=== PATIENT | female | born 1960 | race Caucasian/White ===

== ENCOUNTER 2018-09-18 09:12 | Day surgery (SDC) | payer OTHER ==
--- NOTE | 2018-09-10 13:01 | PREOPHP ---
DATE OF ADMISSION: 09/11/2018 HISTORY OF PRESENT ILLNESS: This 57-year-old patient is admitted for elective cataract surgery of th e right eye. The patient has had progressive deterioration of vision in both eyes and 2 years ago un derwent cataract surgery in the left eye with excellent visual improvement. There is no other prior history of eye disease or injury. PAST MEDICAL HISTORY: The patient's systemic history is positive for a 10-year history of insulin-de pendent diabetes mellitus. Systemic hypertension has been present for the past 20 years. CURRENT MEDICATIONS: Include: 1. Humalog. 2. Cozaar. 3. Lantus. 4. Losartan. 5. Aspirin. The aspirin was stopped 1 week prior to surgery. ALLERGIES: THE PATIENT IS ALLERGIC TO TETRACYCLINE. PHYSICAL EXAMINATION: The visual acuity with correction is 20/40 in the right eye and 20/25 in the l eft eye. Slit lamp examination reveals moderate nuclear sclerosis and dense posterior subcapsular ca taract in the right eye. The left eye has a posterior chamber intraocular lens in appropriate positi on. Applanation tonometry is 16 mmHg. Examination of the retina is within normal limits without nacho dence of diabetic retinopathy. DIAGNOSIS: Posterior subcapsular cataract, right eye. PLAN: Cataract extraction with lens implant, right eye. The risks and alternatives to the surgery h ave been discussed with the patient as well as the hope for improvement of visual acuity leading to g reater ability to perform activities of daily living. The patient understands this and agrees to pro ceed with surgery. Dictated By: SACHA BARTH/BOBY Conf#: [id number] DID#: [id number]
--- NOTE | 2018-09-11 07:15 | PREAC ---
Date/Time of Note Date/Time of Note DATE: 09/11/18 TIME: 07:11 Anesthesia Eval and Record Evaluation Time Pre-Procedure Interview DATE: 09/11/18 TIME: 07:11 Age 57 Sex female NPO: 8 hrs Preoperative diagnosis Right Cataract Planned procedure R$ight cataract Extraction And IOL Past Medical History Past Medical History: Includes Cardio: HTN, Dyslipidemia Endo: Diabetes, Hypothyroid Pulm: Other Neuro: Other Musculoskeletal: Other Renal: Other Hepatic: Other GI: Other Heme: Other Psych: Other Infection(s): Other Recreational drugs: Other Surgery & Anesthesia Issues Aspiration risk Meds Anticoagulation: No Beta Snehal within 24 hr: No Reason Beta Snehal not given: Pt. not on B-Snehal Reported Medications Aspirin (Low Dose Aspirin) 81 Mg Tablet.dr, 81 MG PO DAILY, #30 TAB 08/16/16 Citalopram Hydrobromide* (Citalopram Hydrobromide*) 40 Mg Tablet, 40 MG PO DAILY, #30 TAB 08/16/16 Insulin Glargine* (Lantus*) 100 Unit/Ml Soln, 24 UNIT SC QHS, #1 VIAL 08/16/16 Insulin Lispro (Humalog) 100 Unit/1 Ml Cartridge, 10 UNIT SQ AC MEALS 08/16/16 Losartan Potassium* (Cozaar*) 100 Mg Tablet, 100 MG PO DAILY, #30 TAB 08/16/16 Aspirin (Aspirin) 81 Mg Chew, 81 MG PO DAILY 03/08/13 Current Medications Diclofenac Sodium (Voltaren 0.1%) 1 drop Q5 MIN X 3 OPER ; Start 09/11/18 at 06:00 Tropicamide (Mydriacyl 1%) 1 drop Q5 MIN X3 OPER ; Start 09/11/18 at 06:00 Moxifloxacin HCl (Vigamox) 1 drop Q5 MIN X 3 OPER ; Start 09/11/18 at 06:00 Cyclopentolate/ Phenylephrine (Cyclomydril Oph 2 ml) 1 drop Q5 MIN X 3 OPER ; Start 09/11/18 at 06:00 Sodium Chloride 1,000 ml @ 25 mls/hr Q24H IV ; Start 09/11/18 at 06:00 Meds reviewed: Yes Allergies Coded Allergies: tetracycline (Verified Allergy, Unknown, 08/16/16) Allergies Reviewed: Yes Labs/Studies Labs Reviewed: Reviewed by anesthesiologist test: N/A Studies: ECG, CXR Pre-procedure Exam Airway: Adequate mouth opening Mallampati: Mallampati II Teeth: Normal Lung: Normal Heart: Normal Anticipated Difficutly with IV: Anticipate Difficult IV Access ASA Physical Status ASA physical status: 2 Emergency: None Planned Anesthetic General/MAC: MAC Neuraxial: Other Nerve block: Other Planned Pain Management Parenteral pain med, Local by surgeon Pre-operative Attestations Prior to commencing anesthesia and surgery, the patient was re-evaluated, there was verification of: *The patient's identity *The results of appropriate recent lab work and preoperative vital signs *The above evaluation not changing prior to induction *Anesthetic plan, risk benefits, alternative and complications discussed with patient/family; questions answered; patient/family understands, accepts and wishes to proceed. BALWINDER TRACEY MD Sep 11, 2018 07:15
[~2018-09-18] VITALS: Ht 162.6 cm; Wt 123.3 kg
[2018-09-18] VITALS (11 sets, daily range): BP systolic 146–192; BP diastolic 55–81; PULSE 84–105; RESP 18–22; Ht 162.6 cm; Wt 123.3 kg
[~2018-09-18 09:12] MED LIST: ASPI-831 PO; ASPI81TA52 PO; CITA40TA6 PO; CYCLOPENTOLATE/PHENYLEPH 2 ML OPH OPER SCH; DICLOFENAC 0.1% 2.5 ML OPH OPER SCH; INSU100C SQ; LANT3I SC; LOSA100T3 PO; MOXIFLOXACIN 0.5% 3 ML OPH OPER SCH; SOD CHLORIDE 0.9% 1,000 ML IV SCH; TROPICAMIDE 1% 15 ML OPH OPER SCH
--- NOTE | 2018-09-18 09:14 | PREAC ---
Date/Time of Note Date/Time of Note DATE: 09/18/18 TIME: 09:10 Anesthesia Eval and Record Evaluation Time Pre-Procedure Interview DATE: 09/18/18 TIME: 09:10 Age 57 Sex female NPO: 8 hrs Preoperative diagnosis Right Eye Cataract Planned procedure Right Eye Cataract Extraction And IOL Past Medical History Past Medical History: Includes Cardio: HTN, Dyslipidemia Endo: Diabetes Pulm: Other Neuro: Other Musculoskeletal: Other Renal: Other Hepatic: Other GI: Obesity Heme: Other Psych: Anxiety Infection(s): Other Recreational drugs: Other : Other Surgery & Anesthesia Issues Aspiration risk Meds Anticoagulation: No Beta Snehal within 24 hr: No Reason Beta Snehal not given: Pt. not on B-Snehal Reported Medications Aspirin (Low Dose Aspirin) 81 Mg Tablet.dr, 81 MG PO DAILY, #30 TAB 08/16/16 Citalopram Hydrobromide* (Citalopram Hydrobromide*) 40 Mg Tablet, 40 MG PO D AILY, #30 TAB 08/16/16 Insulin Glargine* (Lantus*) 100 Unit/Ml Soln, 24 UNIT SC QHS, #1 VIAL 08/16/16 Insulin Lispro (Humalog) 100 Unit/1 Ml Cartridge, 10 UNIT SQ AC MEALS 08/16/16 Losartan Potassium* (Cozaar*) 100 Mg Tablet, 100 MG PO DAILY, #30 TAB 08/16/16 Aspirin (Aspirin) 81 Mg Chew, 81 MG PO DAILY 03/08/13 Current Medications Diclofenac Sodium (Voltaren 0.1%) 1 drop Q5 MIN X 3 OPER ; Start 09/18/18 at 08:00 Tropicamide (Mydriacyl 1%) 1 drop Q5 MIN X3 OPER ; Start 09/18/18 at 08:00 Moxifloxacin HCl (Vigamox) 1 drop Q5 MIN X 3 OPER ; Start 09/18/18 at 08:00 Cyclopentolate/ Phenylephrine (Cyclomydril Oph 2 ml) 1 drop Q5 MIN X 3 OPER ; Start 09/18/18 at 08:00 Sodium Chloride 1,000 ml @ 25 mls/hr Q24H IV ; Start 09/18/18 at 08:00 Meds reviewed: Yes Allergies Coded Allergies: tetracycline (Verified Allergy, Unknown, 08/16/16) Allergies Reviewed: Yes Labs/Studies Labs Reviewed: Reviewed by anesthesiologist test: N/A Studies: ECG, CXR Pre-procedure Exam Airway: Adequate mouth opening Mallampati: Mallampati II Teeth: Normal Lung: Normal Heart: Normal Anticipated Difficutly with IV: Anticipate Difficult IV Access ASA Physical Status ASA physical status: 2 Emergency: None Planned Anesthetic General/MAC: MAC Neuraxial: Other Nerve block: Other Planned Pain Management Parenteral pain med, Local by surgeon Pre-operative Attestations Prior to commencing anesthesia and surgery, the patient was re-evaluated, there was verification of: *The patient's identity *The results of appropriate recent lab work and preoperative vital signs *The above evaluation not changing prior to induction *Anesthetic plan, risk benefits, alternative and complications discussed with patient/family; questions answered; patient/family understands, accepts and wishes to proceed. BALWINDER TRACEY MD Sep 18, 2018 09:14
[2018-09-18] MEDS ORDERED: ASPI81TA52 PO (09:43)
[2018-09-18] MEDS ORDERED: LOSA50TA14 PO (09:43)
[2018-09-18] MEDS ORDERED: INSU200I SQ (09:44)
[2018-09-18] MEDS ORDERED: INSU100I33 SC (09:44)
[2018-09-18] MEDS ORDERED: TETRACAINE 0.5% 4 ML OPH ONE (12:00)
[2018-09-18] MEDS ORDERED: CEFAZOLIN 1 GM INJ ONE (12:00)
[2018-09-18] MEDS ORDERED: LIDOCAINE 4% (MPF) 5 ML INJ ONE (12:00)
[2018-09-18] MEDS ORDERED: NA HYALURONATE/CHONDROITIN 0.5 ML SYG ONE (12:00)
[2018-09-18] MEDS ORDERED: DEXAMETHASONE 4 MG/ML 1 ML INJ ONE (12:00)
[2018-09-18] MEDS ORDERED: LIDOCAINE 2% (SDV) 5 ML INJ ONE (12:17)
[2018-09-18] MEDS ORDERED: PROPOFOL 20 ML ONE (12:17)
[2018-09-18] MEDS ORDERED: CARBACHOL 0.01% 1.5 ML OPH INJ RIGHT EYE ONE (12:30)
[2018-09-18] MEDS ORDERED: FENTAnyl 50 MCG/ML VIAL ONE (13:01)
--- NOTE | 2018-09-18 13:01 | SIPON ---
Date/Time of Note Date/Time of Note DATE: 09/18/18 TIME: 12:58 Operative Report Preoperative Diagnosis posterior subcapsular cataract od Postoperative Diagnosis same Operation/Procedure Performed cataract extraction with lens implant od Surgeon sacha st imaging assistant none Anesthesia: MAC Estimated blood loss: none Transfusion Required none Specimen none Grafts/Implants posterior chamber lens implant Complications none SACHA ST MD Sep 18, 2018 13:01
[2018-09-18] MEDS ORDERED: ONDANSETRON 4 MG INJ ONE (13:02)
--- NOTE | 2018-09-18 13:08 | PAC ---
Date/Time of Note Date/Time of Note DATE: 09/18/18 TIME: 13:07 Post-Anesthesia Notes Post-Anesthesia Note Last documented vital signs Vital Signs Date Temp Pulse Resp B/P (MAP) Pulse Ox O2 O2 Flow FiO2 Time Delivery Rate 09/18/18 98.4 105 18 146/66 97 Room Air 10:31 (92) Activity: WNL Respiratory function: WNL Cardiovascular function: WNL Mental status: Baseline Pain reasonably controlled: Yes Hydration appropriate: Yes Nausea/Vomiting absent: No BALWINDER TRACEY MD Sep 18, 2018 13:08
[2018-09-18] MEDS ORDERED: hydrALAzine 20 MG INJ ONE (13:10)
[2018-09-18] MEDS: HYDROmorphONE 1 MG/5 ML IV SYRINGE IV PRN ×2 (13:22→13:27)
[2018-09-18] MEDS ORDERED: ONDANSETRON 4 MG INJ IV PRN (13:30)
[2018-09-18] MEDS ORDERED: FENTAnyl 50 MCG/ML VIAL IV PRN ×2 (13:30)
[2018-09-18] MEDS ORDERED: LABETALOL HCL 20MG INJ IV PRN (13:30)
[2018-09-18] MEDS ORDERED: DIPHENHYDRAMINE 50 MG INJ IV PRN (13:30)
[2018-09-18] MEDS ORDERED: OXYCODONE/ACETAMINOPHEN (5/325) TAB PO PRN ×2 (13:30)
[2018-09-18] MEDS ORDERED: hydrALAzine 20 MG INJ IV PRN (13:30)
[2018-09-18] MEDS ORDERED: HYDROmorphONE 1 MG/5 ML IV SYRINGE IV PRN ×2 (13:30)
--- NOTE | 2018-09-18 15:48 | OPR ---
DATE OF OPERATION: 09/18/2018 PREOPERATIVE DIAGNOSIS: Posterior subcapsular cataract, right eye. POSTOPERATIVE DIAGNOSIS: Posterior subcapsular cataract, right eye. OPERATION PERFORMED: Cataract extraction with lens implant, right eye. SURGEON: Sacha Richey MD ANESTHESIOLOGIST: Nilesh Alicea MD ANESTHESIA: Local standby. PROCEDURE: The patient was brought to the operating room and placed on the table with an IV in place and the patient attached to an teletypesetter monitor. Oxygen was given via face mask. After some intravenous sedation was administered, local anesthesia was given using Xylocaine 2% with epinephrine, mixed with Marcaine 0.5%. This was given in a lid block and retrobulbar injection. The p atient was then prepped and draped in the usual sterile manner. A wire lid speculum was inserted between the lids of the right eye. A Superblade was used to enter th e anterior chamber at the corneoscleral limbus at the 10:30 o'clock position. A separate incision was made using a 3.0-mm keratome which entered the corneoscleral junction at the 12 o'clock position. Th rough this 3-mm opening, an irrigating cystotome was introduced into the anterior chamber. The chambe r was filled with Viscoat and an anterior capsulotomy was performed. Balanced salt solution was then used for hydrodissection of the lens. A phacoemulsification handpiece was then brought into the fiel d and introduced into the anterior chamber. The lens nucleus was emulsified using a deep groove and c racking the nucleus into quadrants. Following this, each quadrant was aspirated and emulsified at the pupillary margin. It was noted following removal lens nucleus that there was a break in the posterior capsule and some formed vitreous was present in the anterior chamber. A limited anterior vitrectomy was performed wit h mechanical vitrectomy instrumentation and then when it was noted that no vitreous was present at th e wound, the procedure was continued by removal of lens cortical material. After this was completed, the irrigation/aspiration handpiece was brought to the field, introduced in to the posterior chamber, and the lens cortical material was removed. When this was completed, additi onal Viscoat was injected into the anterior and posterior chambers. The 3-mm opening had its internal lips enlarged, and then the posterior chamber intraocular lens taylor uring 18.0 diopters (Bausch [employer] Lomb Penumbra [id number]) was then injected into the posterior chamber using the lens injector system. After the leading haptic was introduced into the capsular bag and th e lens optic was present in the center of the eye, the injector was removed and the trailing haptic w as grasped with non-toothed forceps and introduced into the capsular fold superiorly. A Sinskey hook was then used to rotate the intraocular lens so that the lips were oriented in the horizontal meridia n. One 10-0 nylon suture was placed across the wound. Prior to tying, the irrigation/aspiration handpiece was reintroduced into the anterior chamber to rem ove the Viscoat. Miochol was instilled to constrict the pupil, and then the 10-0 nylon suture was tie d. The ends were cut short and then the knot was buried. Then, 0.5 mL of dexamethasone and 0.5 mL of Ancef were injected into the sub-Tenon space in the infer ior fornix. Ciloxan drops were then placed on the surface of the eye. The speculum was removed and a patch was applied. The patient then left the operating room in satisfactory condition. Dictated By: SACHA BARTH/BOBY Conf#: [id number] DID#: [id number]
== END 2018-09-18 14:33 | disposition home or self-care (01) ==
LOC: SDS 09:12
PROVIDERS: ATTEND Ophthalmology
DX: H25.041 Posterior subcapsular polar age-related cataract, right eye (principal); I10 Essential (primary) hypertension; E78.5 Hyperlipidemia, unspecified; E11.9 Type 2 diabetes mellitus without complications; E03.9 Hypothyroidism, unspecified
CPT/HCPCS: 66984; 82962; J0360; J0690; J1100; J1170; J1200; J2405; J3010; Z7610; V2632

== ENCOUNTER 2019-01-18 21:42 | Emergency (ER) | payer OTHER ==
[~2019-01-18] VITALS: Ht 162.6 cm; Wt 125.0 kg
[~2019-01-18 21:42] MED LIST changes: -ASPI-831 PO; -CITA40TA6 PO; -CYCLOPENTOLATE/PHENYLEPH 2 ML OPH OPER SCH; -DICLOFENAC 0.1% 2.5 ML OPH OPER SCH; -INSU100C SQ; +INSU100I33 SC; +INSU200I SQ; -LANT3I SC; -LOSA100T3 PO; +LOSA50TA14 PO; -MOXIFLOXACIN 0.5% 3 ML OPH OPER SCH; -SOD CHLORIDE 0.9% 1,000 ML IV SCH; -TROPICAMIDE 1% 15 ML OPH OPER SCH
[2019-01-18 22:19] VITALS: Ht 162.6 cm; Wt 125.0 kg
--- NOTE | 2019-01-18 23:06 | ERD ---
ER Documentation Chief Complaint Chief Complaint back lipoma pain HPI The patient is a 58-year-old female, presenting to the ER because of pain on the chronic left back lipoma pain for 4 days. He saw her physician 2 days ago, treated her with Keflex however she only has been taking Keflex for 1 day, she complains of pain and pruritus, denies fever, chills, neck pain, chest pain, abdominal pain, vomiting, dizzy, diarrhea. She forgot to take her antihypertensive medication today, she took Losartan 100 mg po around 10:30 PM while she was waiting in the waiting room Medical history: Diabetes mellitus, hypertension, dyslipidemia Past surgical history: Cholecystectomy ROS All systems reviewed and are negative except as per history of present illness. Medications Home Meds Active Scripts Ibuprofen* (Motrin*) 600 Mg Tab, 600 MG PO Q6H PRN for PAIN, #20 TAB Prov:SANNA MUELLER MD 01/19/19 Triamcinolone Acetonide* (Kenalog*) 0.1%-15GM Oint, 1 APPLIC TOP TID for 7 Days, #1 EA Prov:SANNA MUELLER MD 01/19/19 Reported Medications Insulin Glargine,Hum.rec.anlog (Basaglar Kwikpen U-100) 100 Unit/1 Ml Insuln .pen, 26 UNIT SC QHS, EA 09/18/18 Insulin Lispro (Humalog Kwikpen) 200 Unit/1 Ml Insuln.pen, 12 UNIT SQ AC A, EA 09/18/18 Aspirin (Low Dose Aspirin) 81 Mg Tablet.dr, 81 MG PO DAILY, #30 TAB 09/18/18 Losartan Potassium* (Losartan Potassium*) 50 Mg Tablet, 50 MG PO BID, TAB 09/18/18 Allergies Allergies: Coded Allergies: tetracycline (Verified Allergy, Unknown, 09/18/18) PMhx/Soc History of Surgery: Yes (Fallopian tube removal, LAP CHOLY, MULTIPLE BODY CYST REMOVAL ) Anesthesia Reaction: No Hx Neurological Disorder: No Hx Respiratory Disorders: No Hx Cardiac Disorders: Yes (HIGH CHOLESTEROL ) Hx Psychiatric Problems: No Hx Miscellaneous Medical Probl: Yes (ABDOMINAL ANEURYSM , MAX TOOL IN THE SPLEEN ) Hx Alcohol Use: No Hx Substance Use: No Hx Tobacco Use: No Physical Exam Vitals Vital Signs Date Temp Pulse Resp B/P (MAP) Pulse Ox O2 O2 Flow FiO2 Time Delivery Rate 01/19/19 98.9 79 16 153/62 98 Room Air 02:16 (92) 01/18/19 99.4 82 16 154/59 98 Room Air 23:39 (90) 01/18/19 99.4 91 18 204/88 98 22:19 (126) Physical Exam Const: No acute distress. Head: Atraumatic. Eyes: Normal Conjunctiva. ENT: Normal External Ears, Nose and Mouth. Neck: Full range of motion. No meningismus. Resp: Clear to auscultation bilaterally. Cardio: Regular rate and rhythm. Abd: Soft, non distended, normal bowel sounds, non tender. Skin: No petechiae or rashes. Back: No midline or flank tenderness. Left upper back lipoma with excoriation and minimal erythema, no discharge Ext: No cyanosis, or edema. Neur: Awake and alert. No focal deficit Psych: Normal Mood and Affect. Results 24 hrs Current Medications Medications Dose Sig/Roman Start Time Status Last (Trade) Ordered Route PRN Stop Time Admin Dose Reason Admin Morphine 4 mg ONCE STAT 01/18/19 DC 01/18/19 Sulfate IM 23:36 23:44 (morphine) 01/18/19 23:37 Ondansetron 4 mg ONCE STAT 01/18/19 DC 01/18/19 HCl (Zofran ODT 23:36 23:44 Odt) 01/18/19 23:37 Ondansetron 4 mg ONCE STAT 01/19/19 DC 01/19/19 HCl (Zofran ODT 01:25 01:34 Odt) 01/19/19 01:26 Procedures/MDM MEDICAL MAKING DECISION: The patient is a 58-year-old female, presenting with pruritus and a lipoma and elevated blood pressure due to missed medication and pain. She is treated with morphine 4 mg IM and Zofran 4 mg ODT x2 for nausea with good response, blood pressure improved and is above outpatient follow-up The differential diagnoses considered include but are not limited to infected lipoma, cellulitis, abscess Departure Diagnosis: Primary Impression: Lipoma of back Condition: Good Comments She was treated with Kenalog cream and Motrin I discussed the findings with the patient. I advised the patient to follow-up with the primary physician in about 2-3 days, sooner if needed and return if any concern. Disclaimer: Inadvertent spelling and grammatical errors are likely due to EHR/dictation software use and do not reflect on the overall quality of patient care. Also, please note that the electronic time recorded on this note does not necessarily reflect the actual time of the patient encounter. SANNA MUELLER MD January 18, 2019 23:06
[2019-01-18] MEDS ORDERED: morphine 4 MG/ML VIAL IM STA (23:36)
[2019-01-18] MEDS ORDERED: ONDANSETRON (ODT) 4 MG TAB ODT STA (23:36)
[2019-01-19] MEDS ORDERED: ONDANSETRON (ODT) 4 MG TAB ODT STA (01:25)
[2019-01-19] MEDS ORDERED: KEN1O TOP (01:59)
[2019-01-19] MEDS ORDERED: IBUP-1542 PO (02:00)
[2019-01-19 02:16] VITALS: BP 153/62; PULSE 79; RESP 16
== END 2019-01-19 02:22 | disposition home or self-care (01) ==
LOC: E/R 21:42
DX: D17.1 Benign lipomatous neoplasm of skin and subcutaneous tissue of trunk (principal); I10 Essential (primary) hypertension; E11.9 Type 2 diabetes mellitus without complications; Z79.4 Long term (current) use of insulin; Z79.82 Long term (current) use of aspirin
CPT/HCPCS: 96372; J2270; Z7502; Z7610